=== PATIENT | female | born 1950 | race Caucasian/White ===

== ENCOUNTER 2018-02-04 11:52 | Day surgery (SDC) | payer OTHER, MEDICARE ==
[2018-01-30 15:22] VITALS: BMI 36.8
[2018-02-04] MEDS ORDERED: DEXAMETHASONE SOD PHOSPHATE/PF 10 MG/ML SDV ONE (13:40)
[2018-02-04] MEDS ORDERED: ROPIVACAINE HCL 0.5% 30ML VIAL ONE (13:40)
[2018-02-04] MEDS ORDERED: PROPOFOL 20 ML ONE ×2 (13:43)
[2018-02-04] MEDS ORDERED: MIDAZOLAM HCL 2 MG/2 ML SINGLE DOSE VIAL ONE (13:43)
[2018-02-04] MEDS ORDERED: ceFAZolin SODIUM 1 GM VIAL ONE (14:19)
[2018-02-04] MEDS ORDERED: DEXAMETHASONE SOD PHOSPHATE 4 MG/1 ML VIAL ONE (14:19)
[2018-02-04] MEDS ORDERED: ONDANSETRON 4 MG/2 ML VIAL ONE (14:19)
[2018-02-04] MEDS ORDERED: GUM MASTIC/STORAX/MSAL/ALCOHOL 1 DRP DROPSBTL MC ONE (15:07)
[2018-02-04] MEDS ORDERED: ONDANSETRON 4 MG/2 ML VIAL IVPUSH PRN (15:40)
[2018-02-04] MEDS ORDERED: oxyCODONE HCL 5 MG TABLET PO PRN (15:40)
[2018-02-04] MEDS ORDERED: LACTATED RINGERS SOLUTION 1,000 ML IV SCH (15:45)
[2018-02-04 17:22] VITALS: BP 153/74; PULSE 89
[2018-02-04 17:25] VITALS: TEMP 98.1
--- NOTE | 2018-02-04 18:52 | OP ---
DATE OF OPERATION: 02/04/2018 PREOPERATIVE DIAGNOSES: 1. Left radial head fracture, displaced, comminuted. 2. Lateral ulnar collateral ligament tear. POSTOPERATIVE DIAGNOSES: 1. Left radial head fracture, displaced, comminuted. 2. Lateral ulnar collateral ligament tear. PROCEDURE: 1. Open treatment of left radial head fracture with prosthetic replacement. 2. Lateral ulnar collateral ligament repair of elbow. SURGEON: Ludwig Mejias MD CUSTOM STOCK MAKER: Que Ornelas PA-C ANESTHESIA: Regional and general. COMPLICATIONS: None. ESTIMATED BLOOD LOSS: Minimal. INDICATIONS FOR THE PROCEDURE: The patient is a 67-year-old female with the above finding, indicated for operative treatment. The risks, benefits, and alternatives were discussed with the patient at length. Proper informed consent was obtained. PROCEDURE: After proper identification of the patient and correct operative site, the patient was brought to the operating room and placed supine on the operating table. All bony prominences were well padded. General anesthesia and regional anesthesia were given. Intravenous antibiotics were given. Left upper extremity was prepped and draped in the usual sterile fashion. Esmarch bandage was used to exsanguinate the left upper extremity. Tourniquet was inflated to 250 mmHg. Examination under anesthesia at this point revealed significantly limited pronation and supination and a flexion contracture of about 45 degrees. She could fully flex. A Tita-type approach was used for the left elbow on the lateral aspect of the elbow. Incision was taken sharply through the skin with blunt and sharp dissection of the subcutaneous tissues. Anconeus ECU interval was developed. Capsule was divided. The fracture was identified. There was also partial rupture of the lateral ulnar collateral ligament. The fracture was identified and found to be highly comminuted and not reconstructible. Fragments were removed from the elbow. The neck was reamed for a smooth fit. Elbow full range of motion was now achieved. The radial neck was broached with the Acumed Elbow Radial Head Replacement System. Proper sized head was measured and proper sized stem was measured. Trial implant was placed. Excellent stability of the elbow and proper fit of the implant was noted. The actual implant was then placed. The elbow was stable on examination with full range of motion. Care was taken to achieve the proper length of the implant. Lateral ulnar collateral ligament was repaired and the tendons were repaired [id number]. The skin was repaired in layers. Sterile dressing and a splint was placed. Patient was reversed from anesthesia and brought to the recovery room in stable condition. She tolerated the procedure well. Que Ornelas, the insurance claims assistant, was integral throughout the procedure. The procedure could not be performed without a skilled operative insurance claims assistant. LUDWIG MEJIAS M.D. CALLIE/[id number]
--- NOTE | 2018-02-10 10:31 | PATH ---
Surgical Pathology Report Patient Name: AGA SHAW [facility]. Rec. #: [id number] /Age/Gender: 1950 (Age: 67) / F Account: [id number] Location: [facility] Taken: 02/04/2018 Received: 02/04/2018 Reported: 02/10/2018 Physicians: Francis Lund M.D. Specimen(s) Received LEFT RADIAL HEAD Clinical History Left radial head fracture Final Diagnosis LEFT RADIAL HEAD, RESECTION: FRAGMENTS OF BONE SHOWING INTERTRABECULAR ORGANIZING HEMORRHAGE, GRANULATION TISSUE FORMATION, AND FOCAL NECROTIC BONE, CONSISTENT WITH FRACTURE. Electronically Signed Allie Ryan M.D. Gross Description Received in formalin labeled "left radial head," is a 3.8 x 2.5 x 1.2 cm aggregate of willett, focally hemorrhagic bone fragments. [employer] sections are submitted in one cassette, following decalcification. 02/06/201802/06/2018
== END 2018-02-04 17:29 | disposition home or self-care (01) ==
LOC: FASU 11:52
PROVIDERS: ATTEND Orthopaedic Surgery Hand Surgery
PROC: 0MQ40ZZ Repair Left Elbow Bursa and Ligament, Open Approach (ICD-10-PCS; 2018-02-04)
PROC: 0RRM0JZ Replacement of Left Elbow Joint with Synthetic Substitute, Open Approach (ICD-10-PCS; principal; 2018-02-04 14:28)
DX: S52.122A Displaced fracture of head of left radius, initial encounter for closed fracture (principal); S53.449A Ulnar collateral ligament sprain of unspecified elbow, initial encounter; X58.XXXA Exposure to other specified factors, initial encounter; Y93.9 Activity, unspecified; Y92.9 Unspecified place or not applicable
CPT/HCPCS: 24343; 24666; C1713; 73070-TC-LT-FY; 82962; 88304-TC; 88311-TC; 94760

== ENCOUNTER 2019-02-24 07:45 | Day surgery (SDC) | payer OTHER, MEDICARE ==
[2019-02-23 15:39] VITALS: BMI 36.1
[2019-02-24] MEDS ORDERED: PROPOFOL 20 ML ONE ×4 (08:02)
[2019-02-24 09:26] VITALS: BP 116/66; PULSE 60; TEMP 98.4
== END 2019-02-24 09:35 | disposition home or self-care (01) ==
LOC: FASU-ENDO 07:45
PROVIDERS: ATTEND Internal Medicine Gastroenterology
PROC: 0DJD8ZZ Inspection of Lower Intestinal Tract, Via Natural or Artificial Opening Endoscopic (ICD-10-PCS; principal; 2019-02-24 08:36)
DX: Z12.11 Encounter for screening for malignant neoplasm of colon (principal); K64.8 Other hemorrhoids
CPT/HCPCS: 82962

== ENCOUNTER 2025-02-02 09:49 | Day surgery (SDC) | payer OTHER, MEDICARE ==
[2025-01-31 11:08] VITALS: BMI 25.0
[2025-02-02] MEDS: CIPROFLOXACIN 0.3% EYE DROPS 5 ML BOTTLE ONE (10:40)
[2025-02-02] MEDS: TROPICAMIDE 1% OPHTH SOLN 15 ML BOTTLE ONE (10:40)
[2025-02-02] MEDS: CYCLOPENTOLATE 2% OPHTH SOLN 2 ML BOTTLE ONE (10:40)
[2025-02-02] MEDS: PHENYLEPHRINE 2.5% OPTHALMIC DROP 2ML BOTTLE ONE (10:40)
[2025-02-02] MEDS ORDERED: LIDOCAINE 1% P/F 10 MG/ML VIAL ONE (11:43)
[2025-02-02] MEDS ORDERED: BSS (NA/CA/MG/K) BALANCED SALT SOLUTION OPHTH SOLN 15 ML BOTTLE ONE (11:43)
[2025-02-02] MEDS ORDERED: TETRACAINE 0.5% OPHTH SOLN 2 ML BOTTLE ONE (11:43)
[2025-02-02] MEDS ORDERED: NEO/POLYMYX B SULF/DEXAMETH OPHTHALMIC 5ML BOTTLE ONE (11:43)
[2025-02-02] MEDS ORDERED: MIDAZOLAM HCL 2 MG/2 ML SINGLE DOSE VIAL ONE (12:08)
[2025-02-02] MEDS ORDERED: ONDANSETRON 4 MG/2 ML VIAL ONE (12:08)
[2025-02-02 13:11] VITALS: PULSE 78; RESP 16; TEMP 97.8
[2025-02-02 13:19] VITALS: BP 115/67
== END 2025-02-02 13:24 | disposition home or self-care (01) ==
LOC: FASU 09:49
PROVIDERS: ATTEND Ophthalmology
PROC: 08RJ3JZ Replacement of Right Lens with Synthetic Substitute, Percutaneous Approach (ICD-10-PCS; principal; 2025-02-02 12:39)
DX: H26.8 Other specified cataract (principal)
CPT/HCPCS: 66984; V2632; 82962